=== PATIENT | male | born 1990 | race Caucasian/White ===

== ENCOUNTER 2023-12-06 14:30 | Emergency (ER) | payer OTHER ==
[~2023-12-06] VITALS: Ht 172.7 cm; Wt 86.2 kg
[2023-12-06 15:06] VITALS: BP 137/78; PULSE 104; RESP 16; TEMP 98.1; O2SAT 100
[2023-12-06] MEDS ORDERED: CEPH-588 PO (16:06)
[2023-12-06] MEDS ORDERED: MUPI2CRE22 TP (16:06)
[2023-12-06] MEDS ORDERED: IBUP-2213 PO (16:06)
[2023-12-06] MEDS ORDERED: SULF-59 PO (16:06)
== END 2023-12-06 16:22 | disposition home or self-care (01) ==
LOC: MED 14:30
DX: L03.114 Cellulitis of left upper limb (principal); F15.90 Other stimulant use, unspecified, uncomplicated; Z79.899 Other long term (current) drug therapy
CPT/HCPCS: 99283